=== PATIENT | male | born 1990 | race Caucasian/White ===

== ENCOUNTER 2023-11-04 05:21 | Emergency (ER) | payer MEDICAID, OTHER ==
[~2023-11-04] VITALS: Ht 180.3 cm; Wt 74.8 kg
[2023-11-04 05:29] VITALS: BP 110/69; TEMP 98.1
[2023-11-04] MEDS ORDERED: IPRATROPIUM NEB FS 0.5 MG/2.5 ML AMPUL.NEB NEB ONE (05:30)
[2023-11-04] MEDS ORDERED: ALBUTEROL FS 2.5 MG/3 ML VIAL.NEB NEB ONE (05:30)
[2023-11-04] MEDS ORDERED: IPRATROPIUM NEB FS 0.5 MG/2.5 ML AMPUL.NEB ONE (05:31)
[2023-11-04] MEDS ORDERED: ALBUTEROL FS 2.5 MG/3 ML VIAL.NEB ONE (05:31)
[2023-11-04 05:40] VITALS: O2SAT 94
[2023-11-04] MEDS ORDERED: ALBU18HF2 INH ×2 (06:27→06:37)
[2023-11-04 06:38] VITALS: O2SAT 99
== END 2023-11-04 06:39 | disposition home or self-care (01) ==
LOC: ER 05:23
DX: J45.909 Unspecified asthma, uncomplicated (principal)